=== PATIENT | male | born 1950 | race Caucasian/White ===

== ENCOUNTER 2017-11-20 02:30 | Emergency (ER) | payer MEDICAID ==
[~2017-11-20] VITALS: Ht 160 cm; Wt 150.0 kg
[2017-11-20 02:30] VITALS: BP 135/90
[~2017-11-20 02:30] MED LIST: AMLO5TAB4 PO; FURO40TA5 PO; HYDR-4001 PO; WARF3TAB28 PO
== END 2017-11-20 02:40 | disposition left against medical advice (07) ==
LOC: ER 02:30
DX: R07.9 Chest pain, unspecified (principal); Z53.21 Procedure and treatment not carried out due to patient leaving prior to being seen by health care provider